=== PATIENT | female | born 1980 ===

== ENCOUNTER 2018-03-15 19:50 | Emergency (ER) | payer SELFPAY ==
[2018-03-15 19:50] VITALS: BMI 26.2
[2018-03-15] MEDS ORDERED: Sodium Chloride 0.9% 1,000 ML IV STA (20:32)
--- NOTE | 2018-03-15 20:37 | C.PDOC ---
History Of Present Illness 37 year old female who is 7 weeks , P:4, presents to the ER with a complaint of abdominal pain since yesterday, associated with nausea, vomiting, and decreased appetite. Patient notes she had an episode of vaginal bleeding 3 days ago, however, did not see her OB about it. Denies fever, chills, chest pain , or SOB. Time Seen by Provider: 03/15/18 20:09 Chief Complaint (Nursing): Abdominal Pain History Per: Patient History/Exam Limitations: no limitations Onset/Duration Of Symptoms: Days Current Symptoms Are (Timing): Still Present Quality Of Discomfort: Unable To Describe Associated Symptoms: Nausea, Vomiting, Loss Of Appetite. denies: Fever, Chills , Chest Pain, Other (SOB) Exacerbating Factors: None Alleviating Factors: None Recent travel outside of the [place]: No Abnormal Vaginal Bleeding: Yes Past Medical History Reviewed: Historical Data, Nursing Documentation, Vital Signs Vital Signs: Last Vital Signs Temp 97.7 F 03/15/18 23:53 Pulse 84 03/15/18 23:53 Resp 20 03/15/18 23:53 BP 106/70 03/15/18 23:53 Pulse Ox 98 03/15/18 23:53 - Medical History PMH: Hypercholesterolemia Surgical History: Cholecystectomy (5 years ago) Family History: States: Unknown Family Hx - Social History Hx Alcohol Use: No Hx Substance Use: No - Immunization History Hx Tetanus Toxoid Vaccination: No Hx Influenza Vaccination: No Hx Pneumococcal Vaccination: No Review Of Systems Except As Marked, All Systems Reviewed And Found Negative. Constitutional: Positive for: Other (Decreased appetite). Negative for: Fever, Chills Cardiovascular: Negative for: Chest Pain Respiratory: Negative for: Shortness of Breath Gastrointestinal: Positive for: Nausea, Vomiting, Abdominal Pain Physical Exam - Physical Exam Additional Physical Exam Comments: Constitutional: No acute distress. Head: Normocephalic. Atraumatic. Eyes: PERRL. ENT: Moist mucous membranes. Neck: Supple. Cardiovascular: Regular rate. Radial pulse 2+ bilaterally. Chest: No tenderness. Respiratory: Clear to auscultation bilaterally. GI: Soft. Nontender. Nondistended. Back: No CVA tenderness. Musculoskeletal: No tenderness or swelling of extremities. Skin: No rash. Neurologic: Alert, no focal deficit. ED Course And Treatment - Laboratory Results Result Diagrams: 03/15/18 21:03 03/15/18 21:03 O2 Sat by Pulse Oximetry: 99 (Room air) Pulse Ox Interpretation: Normal Medical Decision Making Medical Decision Making: US showed IUP with FHR 140 and CRL 7 weeks 1 day. Subchorionic hemorrhage. Os closed. Patient states pain relieved by Tylenol but not taking constantly out of fear of harm to fetus. Informed that acetaminophen safe in . Patient has follow up with OBGYN this month. Disposition - Disposition Disposition: HOME/ ROUTINE Disposition Time: 23:42 Condition: STABLE Prescriptions: Acetaminophen [Tylenol 325mg tab] 2 tab PO Q4H #30 tab Instructions: Threatened Miscarriage Forms: Arlettie ([place]) - Clinical Impression Clinical Impression: Vaginal bleeding in - Scribe Statement The provider has reviewed the documentation as recorded by the Scribe Rashaun Chowdhury All medical record entries made by the Scribe were at my direction and personally dictated by me. I have reviewed the chart and agree that the record accurately reflects my personal performance of the history, physical exam, medical decision making, and the department course for this patient. I have also personally directed, reviewed, and agree with the discharge instructions and disposition.
[2018-03-15 21:02] LABS: SQUAMOUS EPITHIAL 1 /hpf (0-5); URINE BACTERIA RARE (<OCC); URINE BILIRUBIN NEGATIVE (NEGATIVE); URINE BLOOD NEGATIVE (NEGATIVE); URINE CLARITY Clear (Clear); URINE COLOR Yellow (YELLOW); URINE GLUCOSE (UA) NORMAL (Normal); URINE LEUKOCYTE ESTERASE NEG Leu/uL (Negative); URINE PROTEIN NEGATIVE (NEGATIVE); URINE UROBILINOGEN NORMAL mg/dL (0.2-1.0)
[2018-03-15 21:06] LABS: BASO % 0.1 % (0.0-2.0); EOS # 0.1 K/uL (0.0-0.7); EOS % 1.1 % (0.0-4.0); LYMPH # 1.9 K/uL (1.0-4.3); LYMPH % 18.8 % (20.0-40.0); MEAN CELL VOLUME 84.6 fL (81.0-99.0); MEAN CORPUSCULAR HEMOGLOBIN 28.1 pg (27.0-31.0); MEAN CORPUSCULAR HGB CONC 33.3 g/dL (33.0-37.0); MONO # 0.6 K/uL (0.0-0.8); MONO % 6.3 % (0.0-10.0); NEUT # 7.3 K/uL (1.8-7.0); NEUT % 73.7 % (50.0-75.0); NRBC % 0.1 % (0.0-2.0); RBC 4.28 Mil/uL (3.80-5.20); RED CELL DISTRIBUTION WIDTH 14.1 % (11.5-14.5); WHITE BLOOD COUNT 9.9 K/uL (4.8-10.8)
[2018-03-15 21:18] LABS: ALB/GLOB RATIO 1.1 (1.0-2.1); ALBUMIN 4.3 g/dL (3.5-5.0); ALT/SGPT 20 U/L (9-52); AST/SGOT 18 U/L (14-36); BLOOD UREA NITROGEN 6 mg/dL (7-17); CALCIUM 9.5 mg/dl (8.6-10.4); GFR AFRICAN-AMERICAN > 60; GFR NON-AFRICAN AMERICAN > 60
--- NOTE | 2018-03-15 23:33 | US ---
EXAM: US , Transvaginal CLINICAL HISTORY: 37 years old, female; Pain; complicated by abdominal or pelvic pain; Lower; First trimester; Gestational age or lmp: 01/09/2018; ; Additional info: Vag bleedin in . [facility] [place]---[id number] TECHNIQUE: Real-time transvaginal obstetrical ultrasound of the maternal pelvis and a first trimester with image documentation. Transvaginal imaging was used for better evaluation of the fetus and adnexa. COMPARISON: No relevant prior studies available. FINDINGS: Gestation: Single live intrauterine gestation. heart rate of 142 beats per minute. Almond-rump length of 1.0 cm, correlating with gestational age of 7 weeks 1 day. Uterus/cervix: Retroverted uterus. 1.0 x 0.5 x 1.3 cm collection about gestational sac. Closed cervix. Cervical length = 2.5 cm. Ovaries: Normal ovaries. No adnexal masses. Free fluid: No significant free fluid. IMPRESSION: 1. Single live intrauterine gestation. 2. Probable subchorionic hemorrhage. 3. Incidental/non-acute findings are described above.
[2018-03-15 23:57] VITALS: BP 106/70; PULSE 84; RESP 20; TEMP 97.7
[2018-03-16 00:25] VITALS: O2SAT 99
== END 2018-03-15 23:57 | disposition home or self-care (01) ==
LOC: C.ER 19:50
DX: O46.91 Antepartum hemorrhage, unspecified, first trimester (principal); Z3A.01 Less than 8 weeks gestation of pregnancy
CPT/HCPCS: 76817; 80053; 81001; 84702; 85025; 86850; 86900; 87086; 96360; 99284; J7030